=== PATIENT | male | born 1940 | race Caucasian/White ===

== ENCOUNTER 2024-10-15 19:15 | Inpatient (IN) | payer OTHER ==
[2024-10-15] MEDS ORDERED: NA CHLORIDE 0.9% 250 ML ONE (20:15)
[2024-10-15] MEDS ORDERED: PANTOPRAZOLE 40 MG INJ ONE (20:15)
[2024-10-15] MEDS ORDERED: NA CHLORIDE 0.9% 1,000 ML ONE (20:15)
[2024-10-15 20:17] LABS: Absolute Basophils 0.1 K/uL (0-0.5); Absolute Eosinophils 0.6 K/uL (0-0.5); Absolute Lymphocytes (CBC) 1.6 K/uL (0.7-4.9); Absolute Monocytes 0.8 K/uL (0.1-1.3); Absolute Neutrophil 5.7 K/uL (1.8-8.0); Basophils % 0.9 % (0-1.3); Eosinophils % 6.8 % (0-4.4); Hematocrit 44.5 % (39.6-49.0); Lymphocytes % 18.3 % (15.3-44.8); MCHC 33.7 g/dL (32.0-36.0); MCV 94.8 fL (80-100); MPV 7.5 fL (7.6-11.3); Monocytes % 9.5 % (3.3-12.3); Neutrophils % 64.5 % (41.7-73.7); Nucleated Red Blood Cells % 0.1 % (0-0); Platelets 324 thou/uL (152-406); RBC Red Blood Cell Count 4.69 M/uL (4.33-5.43); Red Cell Distribution Width 13.4 % (12.1-15.2)
[2024-10-15 20:22] LABS: PT Prothrombin Time 13.1 SECONDS (9.4-12.5); Protime INR 1.18
[2024-10-15 20:35] LABS: Albumin 3.3 g/dL (3.4-5.0); Albumin/Globulin Ratio 1.1 (1.1-1.8); Anion Gap 8.3 mEq/L (5.0-15.0); Bilirubin Direct 0.2 mg/dL (0-0.2); Bilirubin Indirect, Calculated 0.2 mg/dL (0.2-0.8); Bilirubin Total 0.4 mg/dL (0.2-1.0); Globulin 2.9 g/dL (2.3-3.5); Potassium 4.3 mEq/L (3.5-5.1); Protein, Total 6.2 g/dL (6.4-8.2); Troponin High Sensitivity 8.8 pg/mL (<58.9)
--- NOTE | 2024-10-15 21:31 | RAD REPORT ---
EXAMINATION: CT ABDOMEN AND PELVIS WITH CONTRAST CLINICAL INDICATION: CT angio TECHNIQUE: CT abdomen and pelvis was performed, after the administration of IV contrast, as per [facility] protocol. Axial, sagittal and coronal reconstructions were obtained. One or more of the following dose reduction techniques were used: Automated exposure control, adjustment of the mA and k V according to patient size, and iterative reconstruction. Unless otherwise specified, incidental findings do not require dedicated imaging follow-up. COMPARISON: No prior exam. FINDINGS: LOWER CHEST: Mild linear atelectasis left lung base. Mild fluid distal esophagus may represent reflux . LIVER: Normal in size and contour. No focal lesion. SPLEEN: Normal size. No focal lesion. PANCREAS: No mass, ductal dilation, or katie-pancreatic fluid. ADRENALS: Normal; no mass. KIDNEYS: Punctate calculus superior pole left kidney. No hydronephrosis. Bilateral renal cysts are pr esent. GASTROINTESTINAL TRACT: No evidence of free air, significant intra-abdominal free fluid, bowel obstru ction or abscess. Prominent sigmoid diverticulosis coli without diverticulitis. APPENDIX: Normal appendix. LYMPH NODES: No lymphadenopathy. MUSCULOSKELETAL: Mild levoscoliosis of the lumbar spine. ADDITIONAL FINDINGS: None. IMPRESSION: Mild sigmoid diverticulosis coli without diverticulitis.
--- NOTE | 2024-10-15 22:12 | ER ---
Nurse's Notes [facility] Name: Aly Steele Jr Age: 84 yrs Sex: Male : 1940 Arrival Date: 10/15/2024 Time: 19:15 Bed 5 Private MD: Devin Botello Diagnosis: GI Bleed/ Gastrointestinal hemorrhage, unspecified;Acute Lower GI bleeding Presentation: 10/15 19:44 Chief complaint: Patient states: bright red bloody stools X1 day. denies pain. started lg3 ABX 10 days ago for toenail. Coronavirus screen: Client denies travel out of the [place] in the last 14 days. At this time, the client does not indicate any symptoms associated with coronavirus-19. Ebola Screen: No symptoms or risks identified at this time. Initial Sepsis Screen: Does the patient meet any 2 criteria? No. Patient's initial sepsis screen is negative. Does the patient have a suspected source of infection? No. Patient's initial sepsis screen is negative. Risk Assessment: Do you want to hurt yourself or someone else? Patient reports no desire to harm self or others. Onset of symptoms was October 15, 2024. 19:44 Method Of Arrival: Ambulatory lg3 19:44 Acuity: JUDY 3 lg3 Triage Assessment: 19:46 General: Appears in no apparent distress. comfortable, Behavior is calm, cooperative. lg3 Pain: Denies pain. EENT: No deficits noted. No signs and/or symptoms were reported regarding the EENT system. Neuro: No deficits noted. Becerra Agitation-Sedation Scale (RASS): 0 - Alert and Calm Level of Consciousness is awake, alert, obeys commands, Oriented to person, place, time, situation. Cardiovascular: No deficits noted. Denies chest pain, shortness of breath, Capillary refill < 3 seconds Clubbing of nail beds is absent JVD is absent Patient's skin is warm and dry. Respiratory: No deficits noted. Airway is patent Respiratory effort is even, unlabored, Respiratory pattern is regular, symmetrical. GI: Abdomen is round non-distended, Reports bloody stool, Patient currently denies pain. : No signs and/or symptoms were reported regarding the genitourinary system. Derm: No deficits noted. No signs and/or symptoms reported regarding the dermatologic system. Skin is intact, is healthy with good turgor, Skin is dry, Skin is normal, Skin temperature is warm. Musculoskeletal: No deficits noted. No signs and/or symptoms reported regarding the musculoskeletal system. Circulation, motion, and sensation intact. Range of motion: intact in all extremities. Historical: - Allergies: 19:46 No Known Allergies; lg3 - Home Meds: 19:46 Primidone Oral [Active]; Lisinopril Oral [Active]; Crestor oral [Active]; propanalol lg3 [Active]; tamsulosin oral [Active]; - PMHx: 19:46 tremors; Hypertensive disorder; Hypercholesterolemia; BPH; lg3 - PSHx: 19:46 Cholecystectomy; lg3 - Immunization history:: Adult Immunizations up to date. - Infectious Disease History:: Denies. - Social history:: Smoking status: Patient denies any tobacco usage or history of. Patient/guardian denies using alcohol, street drugs. - Family history:: not pertinent. Screenin:41 [facility] ED Fall Risk Assessment (Adult) History of falling in the last 3 months, cm10 including since admission No falls in past 3 months (0 pts) Confusion or Disorientation No (0 pts) Intoxicated or Sedated No (0 pts) Impaired Gait No (0 pts) Mobility Assist Device Used No (0 pt) Altered Elimination No (0 pt) Score/Fall Risk Level 0 - 2 = Low Risk Oriented to surroundings, Maintained a safe environment, Hourly rounding (assess needs \T\ fall precautionary measures) done. Abuse screen: Denies threats or abuse. Denies injuries from another. Nutritional screening: No deficits noted. Tuberculosis screening: No symptoms or risk factors identified. Assessment: 21:47 Reassessment: Patient appears in no apparent distress at this time. No changes from cm10 previously documented assessment. Patient and/or family updated on plan of care and expected duration. Pain level reassessed. Patient is alert, oriented x 3, equal unlabored respirations, skin warm/dry/pink. Vital Signs: 19:44 BP 112 / 76; Pulse 79; Resp 17 S; Temp 97.1(TE); Pulse Ox 97% on R/A; Weight 90.72 kg lg3 (R); Height 5 ft. 11 in. (R); Pain 0/10; 21:46 BP 143 / 77; Pulse 69; Resp 14; Pulse Ox 96% on R/A; cm10 23:00 BP 145 / 76; Pulse 65; Resp 18 S; Pulse Ox 98% on R/A; lg3 19:44 Body Mass Index 27.89 (90.72 kg, 180.34 cm) lg3 19:44 Pain Scale: Adult lg3 Edgar Coma Score: 10/16 07:09 Eye Response: spontaneous(4). Motor Response: obeys commands(6). Verbal Response: sp4 oriented(5). Total: 15. ED Course: 10/15 19:20 Patient arrived in ED. gm2 19:20 Devin Botello MD is Private Physician. gm2 19:46 Triage completed. lg3 19:46 Arm band placed on right wrist. lg3 19:54 Radha Phelps, BRYANT is Primary Nurse. cm10 19:56 Sukhi Felton MD is Attending Physician. sp4 20:10 Served as a second baker during rectal exam. cm10 20:11 Basic Metabolic Panel Sent. cm10 20:12 CBC with Diff Sent. cm10 20:12 LFT's Sent. cm10 20:12 NT PRO-BNP Sent. cm10 20:12 PT-INR Sent. cm10 20:12 Troponin HS Sent. cm10 20:12 Type And Screen Sent. cm10 20:12 Initial lab(s) drawn, by co, sent to lab. T\T\S collected, blood band applied to patient. cm10 Inserted saline lock: 20 gauge in right forearm, using aseptic technique. Blood collected. Flushed with 10 mL NS. 20:18 EKG done, by marine services technician. af3 20:41 Patient has correct armband on for positive identification. Placed in gown. Bed in low cm10 position. Call light in reach. Side rails up X2. Client placed on continuous cardiac and pulse oximetry monitoring. NIBP monitoring applied. monitor technician on. 21:18 CT Abd/Pelvis - IV Contrast Only In Process Unspecified. EDMS 22:11 Devin Botello MD is Hospitalizing Provider. sp4 10/16 00:55 Patient admitted, IV remains in place. lg3 Administered Medications: 10/15 20:32 Drug: NS 0.9% IV 1000 ml IV at 125 ml/hr Per protocol; to be given as a bolus over 60 cm10 minutes Route: IV; Rate: 125 ml/hr; Site: right forearm; 23:09 Follow up: IV Status: Infusion continued upon admission lg3 20:33 Drug: Pantoprazole IVP 80 mg IVP once Route: IVP; Site: right forearm; cm10 23:08 Follow up: Response: No adverse reaction lg3 20:33 Drug: Pantoprazole IV 8 mg/hr IV at 25 ml/hr continuous; (Standard dilution is 80 mg in cm10 250 mL NS) Route: IV; Rate: 25 ml/hr; Site: right forearm; 23:08 Follow up: IV Status: Infusion continued upon admission lg3 22:58 Drug: Rocephin - Rocephin (cefTRIAXone) IVPB 1 grams IVPB once over 30 mins; (mix in 50 lg3 mL NS) Route: IVPB; Infused Over: 30 mins; Site: right wrist; 23:09 Follow up: Response: No adverse reaction; IV Status: Completed infusion; IV Intake: [id number] 22:58 Drug: metroNIDAZOLE IVPB 500 mg 100 ml IVPB at 200 ml/hr once over 30 mins Volume: 100 lg3 ml; Route: IVPB; Rate: 200 ml/hr; Infused Over: 30 mins; Site: right wrist; 10/16 00:55 Follow up: Response: No adverse reaction; IV Status: Completed infusion; IV Intake: lg3 100ml Medication: 00:55 VIS not applicable for this client. lg3 Intake: 10/15 23:09 IV: 10ml; Total: 10ml. lg3 10/16 00:55 IV: 100ml; Total: 110ml. lg3 Outcome: 10/15 22:11 Decision to Hospitalize by Provider. sp4 10/16 00:55 Admitted to Med/surg accompanied by tech, via stretcher, room 222, lg3 Condition: stable Instructed on the need for admit, Demonstrated understanding of instructions, 00:55 Patient left the ED. lg3 Signatures: Dispatcher [employer] EDMS Harleen Dumont RN RN lg3 Sukhi Felton MD MD sp4 Radha Phelps RN RN cm10 Jasmine Almeida gm2 Amber Rick af3 Corrections: (The following items were deleted from the chart) 10/15 19:49 19:46 PSHx: BPH; lg3 lg3 19:49 19:46 PSHx: None; lg3 lg3 19:52 19:44 Chief complaint: Patient states: bright red bloody stools X1 day. denies pain lg3 lg3
--- NOTE | 2024-10-15 22:12 | EDPHYS ---
Physician Documentation [facility] Name: Aly Steele Jr Age: 84 yrs Sex: Male : 1940 Arrival Date: 10/15/2024 Time: 19:15 Bed 5 Private MD: Devin Botello ED Physician Sukhi Felton HPI: 10/15 19:56 This 84 yrs old Male presents to ER via Ambulatory with complaints of Bloody sp4 Stools. 10/16 07:09 84-year-old male presents with complaint of acute blood in the stool. Reports painless sp4 bleeding with bowel movement today. Historical: - Allergies: 10/15 19:46 No Known Allergies; lg3 - Home Meds: 19:46 Primidone Oral [Active]; Lisinopril Oral [Active]; Crestor oral [Active]; propanalol lg3 [Active]; tamsulosin oral [Active]; - PMHx: 19:46 tremors; Hypertensive disorder; Hypercholesterolemia; BPH; lg3 - PSHx: 19:46 Cholecystectomy; lg3 - Immunization history:: Adult Immunizations up to date. - Infectious Disease History:: Denies. - Social history:: Smoking status: Patient denies any tobacco usage or history of. Patient/guardian denies using alcohol, street drugs. - Family history:: not pertinent. ROS: 10/16 07:09 Constitutional: Negative for fever, chills, and weight loss, positive bloody stools sp4 All other systems are negative, Exam: 07:09 Constitutional: This is a well developed, well nourished patient who is awake, alert, sp4 and in no acute distress. Head/Face: Normocephalic, atraumatic. Eyes: Pupils equal round and reactive to light, extra-ocular motions intact. Lids and lashes normal. Conjunctiva and sclera are not injected. Cornea within normal limits. Periorbital areas with no swelling, redness, or edema. ENT: Nares patent. No nasal discharge, no septal abnormalities noted. Tympanic membranes are normal and external auditory canals are clear. Oropharynx with no redness, swelling, or masses, exudates, or evidence of obstruction, uvula midline. Mucous membranes moist. Neck: Trachea midline, no thyromegaly or masses palpated, and no cervical lymphadenopathy. Supple, full range of motion without nuchal rigidity, or vertebral point tenderness. Chest/axilla: Normal chest wall appearance and motion. Nontender with no deformity. No lesions are appreciated. Cardiovascular: Regular rate and rhythm with a normal S1 and S2. No gallops, murmurs, or rubs. Normal PMI, no JVD. No pulse deficits. Respiratory: Lungs have equal breath sounds bilaterally, clear to auscultation and percussion. No rales, rhonchi or wheezes noted. No increased work of breathing, no retractions or nasal flaring. Abdomen/GI: Soft, with normal bowel sounds. No distension or tympany. No guarding or rebound. No evidence of tenderness throughout. Back: No spinal tenderness. No costovertebral tenderness. Male : Normal genitalia with no discharge or lesions. SHERRELL reveals dark bloody stool. Skin: Warm, dry with normal turgor. Normal color with no rashes, no lesions, and no evidence of cellulitis. MS/ Extremity: Pulses equal, no cyanosis. Neurovascular intact. Full, normal range of motion. Neuro: Awake and alert, GCS 15, oriented to person, place, time, and situation. Cranial nerves II-XII grossly intact. Motor strength 5/5 in all extremities. Sensory grossly intact. Psych: Awake, alert, with orientation to person, place and time. Behavior, mood, and affect are within normal limits 07:09 ECG was reviewed by the Attending Physician. EKG at 2015 sinus rhythm first-degree AV block rate 74. Vital Signs: 10/15 19:44 BP 112 / 76; Pulse 79; Resp 17 S; Temp 97.1(TE); Pulse Ox 97% on R/A; Weight 90.72 kg lg3 (R); Height 5 ft. 11 in. (R); Pain 0/10; 21:46 BP 143 / 77; Pulse 69; Resp 14; Pulse Ox 96% on R/A; cm10 23:00 BP 145 / 76; Pulse 65; Resp 18 S; Pulse Ox 98% on R/A; lg3 19:44 Body Mass Index 27.89 (90.72 kg, 180.34 cm) lg3 19:44 Pain Scale: Adult lg3 Edgar Coma Score: 10/16 07:09 Eye Response: spontaneous(4). Motor Response: obeys commands(6). Verbal Response: sp4 oriented(5). Total: 15. MDM: 10/15 20:11 Medical Screening Exam initiated sp4 21:52 ED course: EXAMINATION: CTABDOMEN AND PELVIS WITH CONTRAST CLINICAL INDICATION: CT sp4 angio TECHNIQUE: CT abdomen and pelvis was performed, after the administration of IV contrast, as per department protocol. Axial, sagittal and coronal reconstructions were obtained. One or more of the following dose reduction techniques were used: Automated exposure control, adjustment of the mA and kV according to patient size, and iterative reconstruction. Unless otherwise specified, incidental findings do not require dedicated imaging follow-up. COMPARISON: No prior exam. FINDINGS: LOWER CHEST: Mild linear atelectasis left lung base. Mild fluid distal esophagus may represent reflux. LIVER: Normal in size and contour. No focal lesion. SPLEEN: Normal size. No focal lesion. PANCREAS: No mass, ductal dilation, or katie-pancreatic fluid. ADRENALS: Normal; no mass. KIDNEYS: Punctate calculus superior pole left kidney. No hydronephrosis. Bilateral renal cysts are present. GASTROINTESTINAL TRACT: No evidence of free air, significant intra-abdominal free fluid, bowel obstruction or abscess. Prominent sigmoid diverticulosis coli without diverticulitis. APPENDIX: Normal appendix. LYMPH NODES: No lymphadenopathy. MUSCULOSKELETAL: Mild levoscoliosis of the lumbar spine. Final Radiology Report IMPRESSION: Mild sigmoid diverticulosis coli without diverticulitis. . 10/16 07:11 Differential diagnosis: gastritis, diverticulitis, hemorrhoids, hemorrhagic shock, sp4 varices. Data reviewed: vital signs, nurses notes, lab test result(s), EKG, radiologic studies, CT scan. Consideration of Admission/Observation Patient was admitted/placed on observation. Escalation of care including admission/observation considered. Management of patient was discussed with the following: Primary Care Provider: Ayan LUQUE . 10/15 19:57 Order name: Type And Screen; Complete Time: 21:19 sp4 10/15 19:57 Order name: Basic Metabolic Panel; Complete Time: 21:19 sp4 10/15 19:57 Order name: CBC with Diff; Complete Time: 21:19 sp4 10/15 19:57 Order name: LFT's; Complete Time: 21:19 sp4 10/15 19:57 Order name: NT PRO-BNP; Complete Time: 21:19 sp4 10/15 19:57 Order name: PT-INR; Complete Time: 21:19 sp4 10/15 19:57 Order name: Troponin HS; Complete Time: 21:19 sp4 10/15 20:11 Order name: Ptt, Activated; Complete Time: 21:19 sp4 10/15 21:54 Order name: Stool Culture [facility] 10/15 21:54 Order name: Fecal Leukocyte Stain [facility] 10/15 21:54 Order name: Ova And Parasites [facility] 10/15 21:54 Order name: CDIFF [facility] 10/15 20:09 Order name: CT Abd/Pelvis - IV Contrast Only; Complete Time: 22:00 4 10/15 19:57 Order name: EKG; Complete Time: 19:58 4 10/15 22:10 Order name: CONS Physician Consult [facility] 10/15 19:57 Order name: Cardiac monitoring; Complete Time: 20:18 sp4 10/15 19:57 Order name: EKG - Nurse/Tech; Complete Time: 20:18 4 10/15 19:57 Order name: IV Saline Lock; Complete Time: 20:11 sp4 10/15 19:57 Order name: Labs collected and sent; Complete Time: 20:11 4 10/15 19:57 Order name: O2 Per Protocol; Complete Time: 20:11 4 10/15 19:57 Order name: O2 Sat Monitoring; Complete Time: 20:11 sp4 10/15 21:58 Order name: NPO; Complete Time: 22:58 sp4 EC/02 20:15 Rate is 74 beats/min. Rhythm is regular, Normal Sinus Rhythm. QRS Zimmerman is Normal. NC sp4 interval is prolonged. QRS interval is normal. QT interval is normal. No Q waves. T waves are Normal. No ST changes noted. Clinical impression: No evidence of ischemia. Interpreted by me. Reviewed by me. Administered Medications: 20:32 Drug: NS 0.9% IV 1000 ml IV at 125 ml/hr Per protocol; to be given as a bolus over 60 cm10 minutes Route: IV; Rate: 125 ml/hr; Site: right forearm; 23:09 Follow up: IV Status: Infusion continued upon admission lg3 20:33 Drug: Pantoprazole IVP 80 mg IVP once Route: IVP; Site: right forearm; cm10 23:08 Follow up: Response: No adverse reaction lg3 20:33 Drug: Pantoprazole IV 8 mg/hr IV at 25 ml/hr continuous; (Standard dilution is 80 mg in cm10 250 mL NS) Route: IV; Rate: 25 ml/hr; Site: right forearm; 23:08 Follow up: IV Status: Infusion continued upon admission lg3 22:58 Drug: Rocephin - Rocephin (cefTRIAXone) IVPB 1 grams IVPB once over 30 mins; (mix in 50 lg3 mL NS) Route: IVPB; Infused Over: 30 mins; Site: right wrist; 23:09 Follow up: Response: No adverse reaction; IV Status: Completed infusion; IV Intake: [id number] 22:58 Drug: metroNIDAZOLE IVPB 500 mg 100 ml IVPB at 200 ml/hr once over 30 mins Volume: 100 lg3 ml; Route: IVPB; Rate: 200 ml/hr; Infused Over: 30 mins; Site: right wrist; 10/16 00:55 Follow up: Response: No adverse reaction; IV Status: Completed infusion; IV Intake: lg3 100ml Disposition: 07:11 Chart complete. sp4 Disposition Summary: 10/15/24 22:11 Hospitalization Ordered Notes: Hospitalization Status: Inpatient Admission sp4 Provider: Devin Botello sp4 Location: Telemetry/[facility] (Inpatient) sp4 Condition: Fair sp4 Problem: new sp4 Symptoms: have improved sp4 Bed/Room Type: Standard sp4 Room Assignment: 222(10/15/24 22:30) 1 Diagnosis - GI Bleed/ Gastrointestinal hemorrhage, unspecified sp4 - Acute Lower GI bleeding sp4 Forms: - Medication Reconciliation Form sp4 - SBAR form sp4 - Leadership Thank You Letter sp4 Signatures: Dispatcher [employer] Harleen Royal RN RN lg3 Peace Horton RN RN vc1 Sukhi Felton MD MD sp4 Radha Phelps RN RN cm10 Corrections: (The following items were deleted from the chart) 10/15 19:49 19:46 PSHx: BPH; lg3 lg3 19:49 19:46 PSHx: None; lg3 lg3 20:11 20:11 PTT, ACTIVATED+COAG.LAB.BRZ ordered. ED EDMS : 22:11 sp4 vc1 224 vc1 vc1
[2024-10-15] MEDS ORDERED: METRONIDAZOLE 500mg IVPB 500 MG/100 ML BAG IV ONE (22:42)
[2024-10-15] MEDS ORDERED: CEFTRIAXONE 1000 MG/VIAL ONE (22:42)
[2024-10-16] MEDS ORDERED: ONDANSETRON 4 MG/2 ML VIAL IV PRN (05:09)
[2024-10-16] MEDS ORDERED: ACETAMINOPHEN 325 MG TABLET PO PRN (05:09)
[2024-10-16] MEDS ORDERED: ZOLPIDEM TARTRATE 5 MG TABLET PO PRN (05:09)
[2024-10-16] MEDS ORDERED: ALBUTEROL 2.5 MG/3 ML NEB SOL NEB PRN (05:09)
[2024-10-16] MEDS: D5 0.9 NS 1,000 ML IV SCH ×2 (05:25→09:49)
[2024-10-16 06:20] LABS: Absolute Basophils 0.1 K/uL (0-0.5); Absolute Eosinophils 0.6 K/uL (0-0.5); Absolute Lymphocytes (CBC) 1.4 K/uL (0.7-4.9); Absolute Monocytes 0.8 K/uL (0.1-1.3); Absolute Neutrophil 4.7 K/uL (1.8-8.0); Basophils % 0.8 % (0-1.3); Eosinophils % 7.8 % (0-4.4); Hematocrit 38.8 % (39.6-49.0); Hemoglobin 13.3 g/dL (13.6-17.9); Lymphocytes % 19.1 % (15.3-44.8); MCH 32.2 pg (27.0-35.0); MCHC 34.3 g/dL (32.0-36.0); MCV 94.1 fL (80-100); MPV 7.8 fL (7.6-11.3); Monocytes % 9.9 % (3.3-12.3); Neutrophils % 62.4 % (41.7-73.7); Nucleated Red Blood Cells % 0.1 % (0-0); Platelets 288 thou/uL (152-406); RBC Red Blood Cell Count 4.12 M/uL (4.33-5.43); Red Cell Distribution Width 13.3 % (12.1-15.2)
[2024-10-16 06:35] LABS: Anion Gap 7.1 mEq/L (5.0-15.0); Potassium 4.1 mEq/L (3.5-5.1)
[2024-10-16 07:31] LABS: Specific Gravity > 1.030 (1.005-1.030); Sqamous Epithelial None Seen /HPF (None Seen); Urine Bacteria None Seen /HPF (<20); Urine Bilirubin NEGATIVE (Negative); Urine Blood Negative (Negative); Urine Clarity Clear (Clear); Urine Color Light-Yellow (Yellow); Urine Culture Reflex Order NOT NEEDED; Urine Glucose NEGATIVE (Negative); Urine Ketones NEGATIVE (Negative); Urine Microscopic Reflex YN ORDER UMIC; Urine Mucus Slight /HPF (None Seen); Urine Nitrite NEGATIVE (Negative); Urine Protein NEGATIVE (Negative); Urine RBC <5 /HPF (None Seen); Urine Urobilinogen Normal (Normal); Urine WBC None Seen /HPF (<5); Urine pH 6.5 (5.0-7.0)
[2024-10-16] MEDS: PROPRANOLOL HCL 10 MG TAB PO SCH (09:00)
[2024-10-16] MEDS: AMOX/K CLAV 875 MG TAB PO SCH (10:09)
[2024-10-16] MEDS: levoFLOXacin 500 MG TAB PO SCH (10:09)
[2024-10-16] MEDS: lisinopriL 20 MG TAB PO SCH (10:09)
--- NOTE | 2024-10-16 12:40 | HP ---
Date of Admission: 10/15/2024 Chief Complaint: Bleeding per rectum. History Of Present Illness: This is an 84-year-old pleasant male patient who contacted my office yes terday and reported that he was having bleeding per rectum and he was instructed to come to emergency room. The patient came to the emergency room late yesterday evening. He denies any abdominal pain, nausea, vomiting. He denies any fever or chills. He denies any constipation or diarrhea. After he was evaluated in the ER, he was admitted to hospital. The patient has not had any recurrence of ble eding after he came to emergency room, and after his admission to the hospital, he has not had any __ . Allergies: TO MIDAZOLAM, DETAILS UNKNOWN AND MYRBETRIQ CAUSING CONSTIPATION. Medications: Amlodipine 5 mg daily in the evening, lisinopril 30 mg daily in the morning, Levaquin 5 00 mg daily, and Augmentin 875 mg twice a day, which he was taking recently for cellulitis of the rig ht foot. Nystatin topically to right foot, propranolol 10 mg twice a day, rosuvastatin 5 mg daily at bedtime, tamsulosin 0.4 mg daily. Review of Systems: GI: As mentioned above. All other systems reviewed and negative. Past Medical History: Significant for COVID-19 infection on March 23, 2022. Benign essential tremor, allergic rhinitis, asthma, hypertension, hyperlipidemia, gastroesophageal reflux disease, diverticul osis, benign prostatic hypertrophy, testicular hyperfunction. Recently, the patient started to have dermatophytosis and cellulitis of right foot. Past Surgical History: Significant for cholecystectomy. Family History: Sister has asthma. Mother , details unknown. Father , had myocardial infar ction. Social History: Prior history of smoking, not at present time. Use of alcohol occasional. Physical Examination: Vital Signs: This morning temperature 97.1, pulse 65, respiratory rate 18, blood pressure 145/76, ox ygen saturation 98%. Height 5 feet 11 inches, weight 200 pounds. General: Awake, alert, oriented, not in distress. HEENT: Head atraumatic, normocephalic. Conjunctivae nonerythematous. Sclerae white. Mouth, no thr ush or edema noted. Ears/Nose, no mass, lesion, discharge noted. Neck: Supple. No JVD, lymph nodes, bruit, thyromegaly noted. Lungs: Bilateral good equal air entry. Clear to auscultation. No rhonchi. No rales. Heart: Normal heart sounds, no murmur or gallop. Abdomen: Soft, bowel sounds normal. No guarding, rigidity, tenderness, mass, hepatosplenomegaly, dis tention, or bruit noted. Extremities: The patient has trace bilateral leg edema involving lower legs and dorsum feet. His [facility] foot exam shows significant improvement compared to few days ago when he was seen at office. Dry skin from the right dorsum foot has almost completely resolved. His redness from right dorsum foot also has almost completely resolved and skin between his toes also appears almost normal. Skin: No rash, ulcer, cellulitis. Lymphatics: No lymph node enlargement in neck, supraclavicular, infraclavicular region. Neuro: No focal neurological deficit. Chest: Unremarkable. External Genitalia: Deferred. Rectal: Deferred. Laboratory Data: Yesterday, white count 8.9, hemoglobin 15, platelets 324. Today, white count 7.6, hemoglobin 13.3, platelets 288. Yesterday, sodium 140, potassium 4.3, chloride 107, bicarb 29, BUN 1 7, creatinine 0.78, glucose 118. Liver function tests unremarkable. Today, sodium 139, potassium 4. 1, chloride 105, bicarb 31, BUN 12, creatinine 0.69, glucose 98. Urinalysis negative. Stool C diffi cile pending. CAT scan of abdomen and pelvis shows evidence of sigmoid diverticulosis without any ev idence of diverticulitis. Impression: 1.Lower gastrointestinal bleeding. 2.Acute blood loss anemia. 3.Hypertension. 4.Hyperlipidemia. 5.Cellulitis, right foot. 6.Dermatophytosis, right foot. 7.Diverticulosis. 8.Gastroesophageal reflux disease. 9.Benign prostatic hypertrophy with lower urinary tract symptoms. Plan: We will go ahead and admit the patient to hospital for further evaluation and management of th is problem. The patient is appropriate for inpatient and is expected to spend 2 midnights in the [facility]. The patient was kept n.p.o. after midnight last night after he was admitted to the hospital a nd GI consultation was requested from Dr. Elder. We will follow up with Dr. Elder, and today, I wi ll start him on clear liquid diet. At home, he takes Augmentin and Levaquin for right foot celluliti s, which we will continue those 2 antibiotics. Different causes of rectal bleeding discussed with e patient and the patient's who was present at bedside including diverticular bleed, hemorrhoid or colorectal neoplasia or angiodysplasia type of problem. Colonoscopy will be done per Dr. Elder. We are hoping that he can accomplish that tomorrow. For hypertension, we will continue antihyperten sive medication per order. No need for further intervention. For his benign prostatic hypertrophy, we will continue tamsulosin per order and no need for further intervention for that. For hyperlipide juan carlos, we will continue his statin therapy and it will not require any further intervention at this blane e. Total time spent was 75 minutes including communication with the emergency room physician, review of emergency room visit record, performing today's evaluation and management, and review of last office visit record from 10/12/2024. SHEREE/JOJO Voice ID: [id number]
[2024-10-16] MEDS: GOLYTELY 4000 ML PO SCH (18:00)
[2024-10-16] MEDS: MAGNESIUM CITRATE 300 ML BOT PO SCH (18:00)
[2024-10-16] MEDS: METOCLOPRAMIDE 10 MG/2mL INJ IV SCH (19:08)
[2024-10-16 19:40] LABS: STOOL CONSISTENCY Liquid/Semi-Solid
[2024-10-16 19:41] LABS: C.diff Antigen/Toxin Ag neg : Tox neg (NEG : NEG); CDIFF INTERNAL NEG CONTROL White Background (WHITE BKGD)
[2024-10-16] MEDS: ROSUVASTATIN 5 MG TAB PO SCH (19:56)
[2024-10-16] MEDS: AMLODIPINE 5 MG TAB PO SCH (19:56)
[2024-10-16] MEDS: TAMSULOSIN 0.4 MG SR CAP PO SCH (19:56)
[2024-10-17 00:25] VITALS: BMI 27.7
[2024-10-17 10:17] LABS: Absolute Eosinophils 0.5 K/uL (0-0.5); Absolute Monocytes 0.7 K/uL (0.1-1.3); Absolute Neutrophil 5.1 K/uL (1.8-8.0); Basophils % 0.5 % (0-1.3); Eosinophils % 6.4 % (0-4.4); Hematocrit 40.4 % (39.6-49.0); Hemoglobin 13.7 g/dL (13.6-17.9); Lymphocytes % 13.2 % (15.3-44.8); MCH 32.1 pg (27.0-35.0); MCV 94.5 fL (80-100); MPV 7.4 fL (7.6-11.3); Neutrophils % 69.9 % (41.7-73.7); Platelets 313 thou/uL (152-406); RBC Red Blood Cell Count 4.28 M/uL (4.33-5.43); Red Cell Distribution Width 13.2 % (12.1-15.2)
[2024-10-17 10:32] LABS: Anion Gap 6.1 mEq/L (5.0-15.0); Magnesium 2.3 mg/dL (1.6-2.4); Potassium 4.1 mEq/L (3.5-5.1)
--- NOTE | 2024-10-17 12:14 | PN ---
Date of Progress Note: 10/17/2024 Subjective: Patient was seen this morning for followup. No new complaints or problems reported by t he patient except continues to have bright red blood per rectum including this morning just before I arrived into his room. He had episode of this bleeding, but denies any abdominal pain, nausea, or vo miting. Objective: Vital Signs: Reviewed. HEENT: Unremarkable. Lungs: Clear to auscultation. Heart: Sounds normal. Abdomen: Soft. Bowel sounds normal. No guarding, rigidity, tenderness, or distention. Extremities: No leg edema Laboratory Data: Blood work from this morning pending. Impression: 1.Rectal bleeding. 2.Hypertension. 3.Hyperlipidemia. 4.Benign essential tremor. Plan: We will go ahead and continue to follow with attorney general, Dr. Elder, who is planning t o do colonoscopy today and I did communicate details with him today. We will go ahead and follow up on blood work. Continue current antihypertensive medication and cholesterol management and I will se e him tomorrow for followup. Continue current IV fluid. SHEREE/MODL Voice ID: [id number] Report ID: [id number]
[2024-10-17] MEDS: NA CHLORIDE 0.9% 500 ML ONE (16:10)
[2024-10-17] MEDS ORDERED: propofoL 200 MG/20 ML VIAL IV ONE (16:28)
--- NOTE | 2024-10-17 20:44 | CON ---
Date of Consultation: 10/16/2024 Reason For Consultation: Hematochezia with anemia. History Of Present Illness: This is an 84-year-old white male with history of hypertension, hyperlip idemia, essential tremors, and gastroesophageal reflux disease, asthma. The patient presented to the hospital with hematochezia, after calling primary care physician told him to seek medical care at [facility]. The patient states he has been having hematochezia over the past day since yesterday, bu t denies any abdominal pain. No nausea, vomiting, fevers, chills, night sweats, constipation, diarrh ea, or other. No hematemesis, coffee-ground emesis, hemoptysis, or other hematuria or other bleeding . No blood thinners. Past Medical History: Significant for hypertension, hyperlipidemia, tremors, benign prostatic hypert rophy, gastric reflux disease, asthma, allergies, sinusitis, diverticulosis, laparoscopic cholecystec christopher, testicular hyperfunction, right foot cellulitis, and dermatophytosis. Medications: At home include amlodipine, lisinopril, Levaquin, Augmentin for cellulitis, nystatin, p ropranolol, rosuvastatin, tamsulosin. Allergies: TO VERSED AND ONE OF THE MEDICATIONS NOT CLEAR, MIRABEGRON. Social History: He is . No tobacco, quit some time ago. Occasional alcohol. Family History: Father of myocardial function. Mother of unknown causes. Sister with ast hma. Review of Systems: The patient has hematochezia, but no abdominal pain, fevers, chills, night sweats, nausea, vomiting, muscle aches, joint aches, backaches, hematemesis, coffee-grounds emesis, hematuria, dysuria, polydip mare, hemoptysis, epistaxis, depression, anxiety, chest pain, seizure, syncope. Physical Examination: Vital Signs: The patient is 5 feet 11 inches, 199 pounds, BMI 27.8 kg/sq m with a temperature 97.5 d egrees Fahrenheit, pulse 57, respirations 16, blood pressure 166/79, O2 saturation 100%. General: A well-nourished, elderly male, lying in bed, in no acute distress. HEENT: Normocephalic, atraumatic. Anicteric. Pupils are equal, round, and reactive to light. Extr aocular movements are intact. Oropharynx is clear. Neck: Supple. No masses. Lungs: Respirations clear to auscultation bilaterally. Cardiac: Regular rhythm. Gastrointestinal: Positive bowel sounds. Soft, nontender, nondistended. No hepatosplenomegaly. Extremities: No clubbing, cyanosis, or edema. 2+ pulses. Neuro: Alert and oriented x3. Grossly nonfocal. 5/5 motor strength. Sensation intact to light katie ch. Laboratory Data: The patient has white count 7.6, hemoglobin 13.3 down from 15.0 yesterday, hematocr it 38.8, MCV 94, platelet count 288, polys of 60% to 62%, lymphocytes 19%, monocytes 10%, and eosinop hils 8%. PT of 13.1, INR of 1.2, PTT of 54.6. The patient has a sodium 139, potassium 4.1, chloride 105, bicarb 31, BUN is 12, creatinine of 0.7, glucose 98, calcium 8.4. Total bilirubin 0.4, direct bilirubin 0.2, indirect 0.2; AST of 16, ALT 29, alkaline phosphatase 76. Total troponin-I of 8.8. B -type nitrate peptide 275 is normal. Total protein 6.2, albumin 3.3. UA was negative except for sli ght mucus. C diff toxin negative. CT of the abdomen and pelvis reveals sigmoid diverticulosis witho ut diverticulitis. No inflammation seen. Impression: 1.Hematochezia, recurrent over the past 24-36 hours. Needs to investigate with colonoscopy. It josias ears after resuscitation. 2.Anemia. 3.History of hypertension, hyperlipidemia, tremors, benign prostatic hypertrophy, gastric reflux dis ease, asthma, allergies, right sinusitis, diverticulosis, cholecystectomy, testicular hypofunction, r ight foot cellulitis, and dermatophytosis. Recommendations: 1.Continue IV fluids, resuscitation. 2.Serial H and H, and transfuse p.r.n. 3.Proceed with colonoscopy. MAGI/JOJO Voice ID: [id number] Report ID: [id number]
[2024-10-17 21:46] VITALS: O2SAT 92
[2024-10-18 09:17] VITALS: BP 123/73; TEMP 97.6
--- NOTE | 2024-10-18 11:20 | DS ---
Date of Discharge: 10/18/2024 Disposition: Discharged to go home. Physical Examination: HEENT: Unremarkable. Lungs: Clear to auscultation. Heart: Sounds normal. Abdomen: Soft. Bowel sounds normal. No guarding, rigidity, tenderness, or distention. Extremities: No leg edema. Right dorsum foot has very minimal pink discoloration involving dorsum t oe, overall significantly better than before. Discharge Medications And Instructions: 1.Continue all prior home medication. 2.Do not take any aspirin, Aleve, Motrin, ibuprofen, or naproxen type of medication. 3.Follow up with Dr. Mckeon next week as per your scheduled appointment. 4.Follow up at my office next week on 10/21/2024 or 10/22/2024. Laboratory Data: Upon admission on 10/15/2024, WBC 8.9, hemoglobin 15, platelets 324. Day after adm ission on October 16, WBC 7.6, hemoglobin 13.3, platelets 288, and yesterday WBC 7.3, hemoglobin 13. 7, platelets 313. Chemistry upon admission, sodium 140, potassium 4.3, chloride 107, bicarb 29, BUN 17, creatinine 0.78, glucose 118. Liver function test unremarkable. Troponin 8.8. ProBNP 275. Yes terday, sodium 140, potassium 4.1, chloride 108, bicarb 30, BUN 6, creatinine 0.60, glucose 108, magn esium 2.3. Stool for C diff was negative. CAT scan of abdomen and pelvis done in the emergency room showed evidence of sigmoid diverticulosis without any evidence of diverticulitis. Final Diagnoses: 1.Lower GI bleeding. 2.Acute blood loss anemia. 3.Diverticulosis. 4.Hypertension. 5.Hyperlipidemia. 6.Cellulitis, right foot. 7.Dermatophytosis, right foot. 8.Gastroesophageal reflux disease. 9.Benign prostatic hypertrophy with lower urinary tract symptoms. Hospital Course: This is an 84-year-old pleasant male patient came into the emergency room complaini ng of bleeding per rectum. Please see dictated H and P for more information. The patient was evalua mary ellen in the emergency room, he was admitted to the hospital with acute lower GI bleeding. The patient was hemodynamically stable and consultation was requested from Dr. Elder, who saw the patient getting ready for colonoscopy, which was done yesterday and colonoscopy showed evidence of bloo d in the lower part of descending colon and rectum, but this appeared to be old blood and there was n o fresh bleeding or active bleeding noted as reported by Dr. Elder. I did discuss with him yesterda y after the colonoscopy regarding his findings and he did not see any other abnormality on the colono scopy and no active bleeding. So at this point, we believe that his bleeding likely could have been from diverticulosis. The patient has not had any more bleeding after the colonoscopy. He denies any abdominal pain, nausea, vomiting. He is tolerating diet very well. I did talk to him today regardi ng diet instruction and taking stool softener on a daily basis and to make sure to drink enough water as he should try to maintain his stool to have soft consistency and avoid any constipation. He was advised to drink 50-60 ounce of water a day and take stool softener daily. If she has recurrence of bleeding, then further workup should be done and this was discussed with him. The patient is hemodyn amically stable, medically stable, and we will discharge him to go home with above-mentioned medicati ons and instructions. Total time spent today was 40 minutes. SHEREE/MODL Voice ID: [id number] Report ID: [id number]
== END 2024-10-18 10:13 | disposition home or self-care (01) | DRG 378 ==
LOC: ER 19:15 → 2ND 22:05
PROVIDERS: ADMIT Internal Medicine; ATTEND Internal Medicine
PROC: 0DJD8ZZ Inspection of Lower Intestinal Tract, Via Natural or Artificial Opening Endoscopic (ICD-10-PCS; principal; 2024-10-15)
DX: K57.91 Diverticulosis of intestine, part unspecified, without perforation or abscess with bleeding (principal); D62 Acute posthemorrhagic anemia; L03.115 Cellulitis of right lower limb; I10 Essential (primary) hypertension; K21.9 Gastro-esophageal reflux disease without esophagitis; Z90.49 Acquired absence of other specified parts of digestive tract; N40.1 Benign prostatic hyperplasia with lower urinary tract symptoms; B35.3 Tinea pedis
CPT/HCPCS: 36415; 74177; 80048; 80076; 81001; 83735; 83880; 84484; 85025; 85610; 85730; 86850; 86900; 86901; 87045; 87046; 87177; 87209; 87324; 89055; 99285; J0696; J2470; J2704; J2765; J7030; J7040; J7042; J7050; Q9967